=== PATIENT | female | born 1945 | race Caucasian/White ===

== ENCOUNTER 2016-11-16 08:00 | Outpatient (CLI) | payer MEDICARE ==
--- NOTE | 2016-11-16 17:46 | XRAY Report ---
CERVICAL SPINE: 11/16/2016 HISTORY: Neck pain. FINDINGS: There is visualization of C1 through the intervertebral disk space of C7-T1. Degenerative disk and facet changes are noted. This is maximal between C5-6 and C6-7 (left greater t buckley right) with apparent neural foraminal compromise. There is no acute fracture or focus of destruction. The prevertebral soft tissues are within normal limits. The visualized lung apices are clear. The C1-2 relationship is preserved. IMPRESSION: DEGENERATIVE DISK AND FACET DISEASE. CONSIDER MRI IF THERE ARE PROGRESSIVE RADICULAR SY MPTOMS. JOB #: [id number] EXT JOB #:[id number]
== END 2016-11-16 23:59 | disposition home or self-care (01) ==
LOC: DI.S 08:00
PROVIDERS: ATTEND Nurse Practitioner Family
DX: M50.30 Other cervical disc degeneration, unspecified cervical region (principal); M47.892 Other spondylosis, cervical region
CPT/HCPCS: 72050

== ENCOUNTER 2016-11-23 08:47 | Outpatient (CLI) | payer MEDICARE ==
[2016-11-23 17:45] LABS: BASOPHILS % (AUTO) 0.5 %; EOSINOPHILS # (AUTO) 0.1 10^3/uL (0.0-0.7); EOSINOPHILS % (AUTO) 1.7 %; HCT - HEMATOCRIT 42.9 % (37.0-47.0); HGB - HEMOGLOBIN 14.2 g/dL (12.0-16.0); LYMPHOCYTES # (AUTO) 1.6 10^3/uL (1.5-3.5); LYMPHOCYTES % (AUTO) 33.4 %; MEAN CORPUSCULAR HEMOGLOBIN 29.2 pg (27.0-31.0); MEAN CORPUSCULAR HGB CONC 33.1 g/dL (32.0-36.0); MEAN CORPUSCULAR VOLUME 88.2 fL (81.0-99.0); MEAN PLATELET VOLUME 9.8 fL (7.9-10.8); MONOCYTES # (AUTO) 0.3 10^3/uL (0.0-1.0); MONOCYTES % (AUTO) 5.9 %; NEUTROPHILS # (AUTO) 2.8 10^3/uL (1.5-6.6); NEUTROPHILS % (AUTO) 58.5 %; RED BLOOD COUNT 4.86 10^6/uL (4.20-5.40); RED CELL DISTRIBUTION WIDTH 13.4 % (12.0-15.0); UNCORRECTED WHITE BLOOD COUNT 4.8 x10^3/uL; WHITE BLOOD COUNT 4.8 x10^3/uL (4.8-10.8)
[2016-11-23 18:14] LABS: ALBUMIN/GLOBULIN RATIO 1.7 (1.0-2.2); BILIRUBIN,TOTAL 1.8 mg/dL (0.2-1.0); BUN - BLOOD UREA NITROGEN 11 mg/dL (6-20); CALCIUM 9.8 mg/dL (8.5-10.3); CARBON DIOXIDE - CO2 28 mmol/L (21-32); CHLORIDE 108 mmol/L (101-111); CHOL/HDL RATIO 3.4 (<4.4); CHOLESTEROL 198 mg/dL; CREATININE 0.6 mg/dL (0.4-1.0); GFR - MDRD 99 (>89); GLUCOSE 95 mg/dL (70-100); HDL CHOLESTEROL 58 mg/dL; LDL/HDL RATIO 2.2 (<4.4); POTASSIUM 3.8 mmol/L (3.5-5.0); SODIUM 141 mmol/L (135-145); TOTAL PROTEIN 6.8 g/dL (6.7-8.2); TRIGLYCERIDES 63 mg/dL; VLDL CHOLESTEROL 13 mg/dL
== END 2016-11-23 08:48 | disposition home or self-care (01) ==
LOC: LAB.F 08:47
PROVIDERS: ATTEND Nurse Practitioner Family
DX: I10 Essential (primary) hypertension (principal)
CPT/HCPCS: 36415; 80053; 80061; 84443; 85025

== ENCOUNTER 2016-12-13 12:40 | Outpatient (CLI) | payer MEDICARE ==
--- NOTE | 2016-12-13 15:09 | MRI Report ---
EXAM: MRI CERVICAL SPINE WITHOUT CONTRAST EXAM DATE: 12/13/2016 01:16 PM. CLINICAL HISTORY: Lifting injury 1990. Left upper limb numbness in the hands and fingers. Right later al wrist pain. COMPARISONS: None. TECHNIQUE: Multiplanar, multisequence T1-weighted and fluid-sensitive sequences of the cervical spine without contrast. Other: None. FINDINGS: Neurologic Structures: The visualized posterior fossa structures are unremarkable. No signal abnormal ity in the visualized spinal cord. Alignment: There is a 7 degree levoscoliosis centered on C4. There is a 2 mm retrolisthesis at C6-C7. There is a slight flexion deformity at C5-C6. Bone Marrow: No gross fractures or bone lesions. No marrow edema. Interspace Levels/Facets: C1-C2: Unremarkable. C2-C3: There is mild left facet joint osteoarthritis. There is minimal foraminal narrowing. C3-C4: Moderate bilateral facet joint osteoarthritis. Moderate left and minimal right foraminal narro wing. Uncovertebral osteophytes contact the left C4 nerve root. C4-C5: There is disk desiccation and loss of disk height. There is mild bilateral facet joint osteoar thritis causing mild foraminal narrowing. There is minimal effacement of the cord. There is moderate left and mild right foraminal narrowing. An uncovertebral osteophyte contacts the left C5 nerve root. C5-C6: There is disk desiccation and loss of disk height. There is a broad-based posterior disk osteo phyte complex and mild bilateral facet joint osteoarthritis. There is moderate right and mild left fo raminal narrowing. C6-C7: There is disk desiccation and loss of disk height. There is a broad-based posterior disk osteo phyte complex causing moderate effacement of the ventral surface of the sac and cord. There is modera te left and mild right foraminal narrowing. An uncovertebral osteophyte contacts the left C7 nerve ro ot. C7-T1: Moderate left and mild right facet joint osteoarthritis. The canal and foramina are patent. Musculature: Normal. No edema or fatty atrophy. Other: The paravertebral and prevertebral soft tissues are normal. IMPRESSION: 1. 7 degree levoscoliosis centered on C4. 2 mm retrolisthesis at C6-C7. 2. Moderate degenerative change with multilevel foraminal narrowing particularly at C5-C6 and C6-C7 c ausing mild cord effacement without cord edema. 3. Multilevel foraminal narrowing particularly at the left C4-C5 and C6-C7 levels. [facility] Referring Provider Line: [phone] SITE ID: [id number]
== END 2016-12-13 12:41 | disposition home or self-care (01) ==
LOC: DI 12:40
PROVIDERS: ATTEND Nurse Practitioner Family
DX: M41.9 Scoliosis, unspecified (principal); M43.12 Spondylolisthesis, cervical region; M47.9 Spondylosis, unspecified; M50.321 Other cervical disc degeneration at C4-C5 level
CPT/HCPCS: 72141

== ENCOUNTER 2016-12-22 13:09 | Outpatient (CLI) | payer MEDICARE ==
--- NOTE | 2016-12-23 11:25 | Mammography Report ---
DIGITAL SCREENING MAMMOGRAPHY: 12/22/2016 COMPARISON: 10/03/2015, 07/24/2013, 09/26/2012, 09/22/2012, and 09/21/2011. TECHNIQUE: Bilateral digital CC and MLO projections. FINDINGS: There are scattered fibroglandular densities. An area of asymmetric increased density in the upper outer left breast is similar to preceding studies. Scattered benign-appearing calcificatio ns are noted. There is no suspicious dominant mass, architectural distortion, new microcalcifications, skin thicken ing, or significant interval change. IMPRESSION: NEGATIVE. BIRADS CATEGORY 1. SUGGEST RETURN TO ROUTINE SCREENING IN 12 MONTHS. STANDARD QUALIFYING STATEMENTS 1. This examination was reviewed with the aid of Computer-Aided Detection (CAD). 2. A negative or benign imaging report should not delay biopsy if clinically suspicious findings are present. Consider surgical consultation if warranted. More than 5% of cancers are not identified by i maging. 3. Dense breasts may obscure an underlying neoplasm. JOB #: [id number] EXT JOB #:[id number]
== END 2016-12-22 13:10 | disposition home or self-care (01) ==
LOC: DI 13:09
PROVIDERS: ATTEND Nurse Practitioner Family
DX: Z12.31 Encounter for screening mammogram for malignant neoplasm of breast (principal)
CPT/HCPCS: 77067

== ENCOUNTER 2017-01-11 09:46 | Day surgery (SDC) | payer MEDICARE ==
[2017-01-11] MEDS ORDERED: LACTATED RINGERS 1,000 ML IV ONE (10:15)
[2017-01-11] MEDS ORDERED: fentaNYL 100 MCG/2 ML VIAL IVP ONE (11:21)
[2017-01-11] MEDS ORDERED: MIDAZOLAM 2 MG/2 ML VIAL IVP ONE (11:21)
[2017-01-11 12:33] VITALS: BP 126/64
== END 2017-01-11 09:47 | disposition home or self-care (01) ==
LOC: SDS 09:46
PROVIDERS: ATTEND Surgery
PROC: 0DBL8ZX Excision of Transverse Colon, Via Natural or Artificial Opening Endoscopic, Diagnostic (ICD-10-PCS; principal; 2017-01-11 11:00)
DX: Z12.11 Encounter for screening for malignant neoplasm of colon (principal); D12.3 Benign neoplasm of transverse colon; I10 Essential (primary) hypertension; G25.81 Restless legs syndrome; F32.9 Major depressive disorder, single episode, unspecified; Z87.891 Personal history of nicotine dependence
CPT/HCPCS: 45380; 88305; J7120

== ENCOUNTER 2017-08-01 14:10 | Outpatient (CLI) | payer MEDICARE ==
--- NOTE | 2017-08-01 16:12 | XRAY Report ---
LEFT HIP AND PELVIS: 08/01/2017 CLINICAL INDICATION: Pain. FINDINGS: Frontal view of the hips and pelvis and frogleg lateral view of the left hip demonstrate mild left hip osteoarthritis, with chondrocalcinosis. Right hip replacement is noted. There is no evidence of fracture or dislocation. IMPRESSION: MILD LEFT HIP OSTEOARTHRITIS. TD: 08/01/2017 16:11
== END 2017-08-01 14:11 | disposition home or self-care (01) ==
LOC: DI.S 14:10
PROVIDERS: ATTEND Nurse Practitioner Family
DX: M25.552 Pain in left hip (principal); M16.12 Unilateral primary osteoarthritis, left hip

== ENCOUNTER 2017-11-03 10:39 | Outpatient (CLI) | payer MEDICARE ==
[2017-11-03 17:26] LABS: BASOPHILS # (AUTO) 0.1 10^3/uL (0.0-0.1); BASOPHILS % (AUTO) 1.2 %; EOSINOPHILS # (AUTO) 0.1 10^3/uL (0.0-0.7); EOSINOPHILS % (AUTO) 1.4 %; HGB - HEMOGLOBIN 14.5 g/dL (12.0-16.0); LYMPHOCYTES # (AUTO) 1.9 10^3/uL (1.5-3.5); LYMPHOCYTES % (AUTO) 31.8 %; MEAN CORPUSCULAR HEMOGLOBIN 29.7 pg (27.0-31.0); MEAN CORPUSCULAR HGB CONC 33.8 g/dL (32.0-36.0); MEAN CORPUSCULAR VOLUME 88.1 fL (81.0-99.0); MEAN PLATELET VOLUME 9.2 fL (7.9-10.8); MONOCYTES # (AUTO) 0.4 10^3/uL (0.0-1.0); MONOCYTES % (AUTO) 7.2 %; NEUTROPHILS # (AUTO) 3.5 10^3/uL (1.5-6.6); NEUTROPHILS % (AUTO) 58.4 %; PLT - PLATELET COUNT 256 10^3/uL (130-450); RED BLOOD COUNT 4.88 10^6/uL (4.20-5.40); RED CELL DISTRIBUTION WIDTH 13.4 % (12.0-15.0)
[2017-11-03 18:09] LABS: ALBUMIN 4.2 g/dL (3.2-5.5); ALBUMIN/GLOBULIN RATIO 1.4 (1.0-2.2); ALKALINE PHOSPHATASE 89 IU/L (42-121); ALT ALANINE AMINOTRANSFERASE 17 IU/L (10-60); AST ASPARTATE AMINOTRANSFERASE 22 IU/L (10-42); BILIRUBIN,TOTAL 2.2 mg/dL (0.2-1.0); BUN - BLOOD UREA NITROGEN 11 mg/dL (6-20); CALCIUM 10.1 mg/dL (8.5-10.3); CARBON DIOXIDE - CO2 29 mmol/L (21-32); CHLORIDE 101 mmol/L (101-111); CHOL/HDL RATIO 3.2 (<4.4); CHOLESTEROL 221 mg/dL; CREATININE 0.5 mg/dL (0.4-1.0); GFR - MDRD 122 (>89); GLUCOSE 97 mg/dL (70-100); HDL CHOLESTEROL 69 mg/dL; LDL CHOLESTEROL,CALCULATED 137 mg/dL; SODIUM 138 mmol/L (135-145); TOTAL PROTEIN 7.2 g/dL (6.7-8.2); VLDL CHOLESTEROL 15 mg/dL
== END 2017-11-03 10:40 | disposition home or self-care (01) ==
LOC: LAB.F 10:39
PROVIDERS: ATTEND Nurse Practitioner Family
DX: I10 Essential (primary) hypertension (principal); Z13.220 Encounter for screening for lipoid disorders
CPT/HCPCS: 36415; 80053; 80061; 83721; 84443; 85025

== ENCOUNTER 2018-05-23 14:03 | Outpatient (CLI) | payer MEDICARE ==
--- NOTE | 2018-05-24 09:24 | XRAY Report ---
Reason: PAIN IN LEFT HAND Procedure Date: 05/23/2018 Accession Number: [id number] / [id number] Procedure: XR - Hand 3 View LT CPT Code: FULL RESULT: EXAM: LEFT HAND RADIOGRAPHY EXAM DATE: 05/23/2018 02:52 PM. CLINICAL HISTORY: Pain in left hand. Ground level fall 1 day ago. COMPARISON: None. TECHNIQUE: 3 views. FINDINGS: Bones: Comminuted fracture of the fourth metacarpal diaphysis with approximately 1 mm volar translation of the distal fragment, otherwise relatively preserved alignment. Joints: Normal. No subluxations. Soft Tissues: Normal. No soft tissue swelling. IMPRESSION: Comminuted fracture of the fourth metacarpal. [facility] The call report notification system was initiated by Dr. Alli Watson at 09:15 AM on 05/24/2018. ADDENDUM: 05/24/18 14:25 The above call report findings were discussed with SRAVANI Kenney by Dr. Alli Watson at 02:25 PM on 05/24/2018.
== END 2018-05-23 14:04 | disposition home or self-care (01) ==
LOC: DI 14:03
PROVIDERS: ATTEND Nurse Practitioner Family
DX: S62.305A Unspecified fracture of fourth metacarpal bone, left hand, initial encounter for closed fracture (principal)

== ENCOUNTER 2018-08-11 16:30 | Outpatient (CLI) | payer MEDICARE ==
--- NOTE | 2018-08-15 14:28 | DEXA Report ---
Reason: OSTEOPOROSIS SCREENING Procedure Date: 08/11/2018 Accession Number: [id number] / [id number] Procedure: DEX - Dexa Spine and/or Hip CPT Code: FULL RESULT: EXAM: Dexa Spine and/or Hip DATE: 08/11/2018 4:20 PM CLINICAL HISTORY: OSTEOPOROSIS SCREENING TECHNIQUE: Dual energy x-ray absorptiometry (DXA) was performed on a [employer] System. Regions measured are the AP Spine, femoral neck, and if needed forearm. COMPARISON: None. In accordance with the International Society for Clinical Densitometry (ISCD) guidelines, data from previous exams may be reanalyzed using current recommendations and techniques. This is done to allow a more accurate basis for comparison with the current study. FINDINGS: The data for the lumbar spine is as follows: BMD (g/cm/cm) T-SCORE Z-SCORE REGION L1 1.034 -0.8 0.7 L2 1.058 -1.2 0.3 L3 1.308 0.9 2.4 L4 1.268 0.6 2.1 TOTAL 1.182 0.0 1.5 NOTE: All evaluable vertebrae are used for classification The data for the hip is as follows: BMD (g/cm/cm) T-SCORE Z-SCORE REGION Neck 0.913 -0.9 0.8 TOTAL 0.901 -0.8 0.6 NOTE: The femoral neck or total proximal femur, whichever is lowest, is used for classification. IMPRESSION: THE WHO CLASSIFICATION BASED ON THE INTERNATIONAL REFERENCE STANDARD IS NORMAL. THE FRACTURE RISK IS NOT INCREASED. RECOMMENDATION: Patients with diagnosis of osteoporosis or osteopenia should have regular bone mineral density assessment. For those eligible for Medicare, routine testing is allowed once every 2 years. Testing frequency can be increased for patients who have rapidly progressing disease or for those who are receiving medical therapy to restore bone mass. COMMENT: World Health Organization (WHO) definitions for osteoporosis and osteopenia: NORMAL BMD: T-score at -1.0 or higher, fracture risk is low OSTEOPENIA BMD: T-score between -1.0 and -2.5, fracture risk is increased. OSTEOPOROSIS BMD: T-score at -2.5 or lower, fracture risk is high. National Osteoporosis Foundation recommends: 1. Obtain adequate dietary calcium (at least 1200 mg per day) and vitamin D (400-800 international units per day). 2. Participate, as appropriate, in regular weightbearing and muscle-strengthening exercise. 3. Avoid tobacco use and reduce alcohol and caffeine intake. 4. For more detailed information see the website at www.NOF.org.
== END 2018-08-11 23:59 | disposition home or self-care (01) ==
LOC: DI 16:30
PROVIDERS: ATTEND Nurse Practitioner Family
DX: Z13.820 Encounter for screening for osteoporosis (principal); Z78.9 Other specified health status
CPT/HCPCS: 77080

== ENCOUNTER 2018-10-19 09:23 | Outpatient (CLI) | payer MEDICARE ==
[2018-10-19 18:05] LABS: ALBUMIN 4.2 g/dL (3.2-5.5); ALBUMIN/GLOBULIN RATIO 1.4 (1.0-2.2); BILIRUBIN,TOTAL 1.7 mg/dL (0.2-1.0); CALCIUM 9.9 mg/dL (8.5-10.3); CREATININE 0.6 mg/dL (0.4-1.0); TOTAL PROTEIN 7.1 g/dL (6.7-8.2)
== END 2018-10-19 09:24 | disposition home or self-care (01) ==
LOC: LAB.S 09:23
PROVIDERS: ATTEND Physician Assistant Medical
DX: I10 Essential (primary) hypertension (principal)
CPT/HCPCS: 36415; 80053

== ENCOUNTER 2018-11-17 21:30 | Emergency (ER) | payer MEDICARE ==
--- NOTE | 2018-11-17 22:05 | ED Physician Documentation ---
History of Present Illness - Stated complaint Stated Complaint: RT ANKLE SWELL/PX - Chief complaint Chief Complaint: Wound - Additonal information Additional information: This is a 73-year-old female with a history of hypertension and her right hip replacement, who presents with right heel pain and redness. Patient states that she had some swelling in her leg several weeks ago which she attributed to changing medications to amlodipine, this resolved but then beginning 2 to 3 days ago she began having some pain redness and warmth of her heel on the right side. She saw her primary care provider who prescribed her amoxicillin for an a pparent cellulitis. However she has been taking this medication without improvement. Her area of redness is now increasing, and she has pain with palpation of the Achilles tendon region. She denies any trauma to the area. She denies redness or swelling elsewhere. She did not note any wounds to the heel previously. She states there might of been a bug bite above the region prior to the start of this redness. No fever, chills. She has been able to walk on it. Review of Systems Constitutional: denies: Fever Skin: reports: Other (+ for erythema around achilles) Musculoskeletal: reports: Extremity pain Immunocompromised: denies: Immunocompromised PD PAST MEDICAL HISTORY - Past Medical History Past Medical History: Yes Cardiovascular: Hypertension Respiratory: None Endocrine/Autoimmune: None : Frequency HEENT: Other Derm: Rosacea - Past Surgical History Past Surgical History: Yes Ortho: Hip replacement, Other - Present Medications Home Medications: Ambulatory Orders Medication Instructions Recorded Confirmed RX: Lisinopril [Prinivil] 20 mg ORAL DAILY 01/11/17 11/17/18 Clindamycin HCl [Clindamycin 150MG 450 mg PO TID #90 capsule 11/17/18 CAP] RX: Amoxicillin 1 tab PO BID 11/17/18 11/17/18 - Allergies Allergies/Adverse Reactions: Allergies Allergy/AdvReac Type Severity Reaction Status Date / Time erythromycin base Allergy Hives Verified 11/17/18 21:52 rofecoxib [From Vioxx] Allergy Unknown Verified 11/17/18 21:52 codeine AdvReac Nausea Verified 11/17/18 21:52 morphine AdvReac Nausea Verified 11/17/18 21:52 - Social History Does the pt smoke?: No Smoking Status: Never smoker Does the pt drink ETOH?: Yes Does the pt have substance abuse?: No - Immunizations Immunizations are current?: Yes - POLST Patient has POLST: No PD ED PE NORMAL - Vitals Vital signs reviewed: Yes - General General: Alert and oriented X 3, No acute distress - HEENT HEENT: PERRL - Neck Neck: Supple, no meningeal sign - Cardiac Cardiac: Strong equal pulses - Abdomen Abdomen: Non distended - Extremities Extremities: Other (Over the right Achilles tendon there is erythema which extends 6 cm superiorly from the insertion site of the Achilles tendon. It is also 5 cm wide. There is tenderness of the entire region including the Achilles tendon. Patient is able to dorsiflex and plantarflex her ankle with mild discomfort. There is no bony tenderness of the ankle. 2+ DP pulse, brisk capi llary refill, sensation light touch intact) - Neuro Neuro: Alert and oriented X 3 - Psych Psych: Normal mood, Normal affect Results - Vitals Vitals: Vital Signs - 24 hr 11/17/18 23:50 Temperature 36.2 C L Heart Rate 72 Respiratory 16 Rate Blood Pressure 168/89 H O2 Saturation 98 Oxygen O2 Source Room air - Labs Labs: Laboratory Tests 11/17/18 11/17/18 22:23 22:23 WBC 9.8 RBC 4.65 Hgb 13.5 Hct 40.7 MCV 87.5 MCH 29.0 MCHC 33.2 RDW 12.9 Plt Count 268 MPV 10.1 Neut # (Auto) 6.1 Lymph # (Auto) 2.6 [place] # (Auto) 0.9 Eos # (Auto) 0.2 Baso # (Auto) 0.1 Absolute Nucleated RBC 0.00 Nucleated RBC % 0.0 Sodium 136 Potassium 3.8 Chloride 97 L Carbon Dioxide 23 Anion Gap 16.0 H BUN 9 Creatinine 0.5 Estimated GFR (MDRD) 121 Glucose 119 H Calcium 10.1 Total Bilirubin 0.9 AST 16 ALT 12 Alkaline Phosphatase 117 C-Reactive Protein 3.4 H Total Protein 7.4 Albumin 4.3 Globulin 3.1 Albumin/Globulin Ratio 1.4 Lipase 26 - Rads (name of study) XR Radiology: Final report received (XR right ankle shows no acute osseous abnormality, no soft tissue gas) PD MEDICAL DECISION MAKING - ED course Complexity details: considered differential (Cellulitis, tendonitis, tenosynovitis, inflammatory arthritis, contact dermatitis) ED course: On exam patient is well appearing with unremarkable vital signs. She has a focal area of redness and tenderness on her heel, is neurologically intact. Labs show no leukocytosis, CMP unremarkable, CRP is slightly elevated at 3.4. XR unremarkable. I do think this is likely a cellulitis, bedside US does not reveal any abscess. No signs of septic joint, she can range the ankle very well. Given that she is very well appearing, we will broaden her abx to clindamycin. I marked out the area of erythema and instructed her to return if is progresses more than 1.5cm from the edge. I reviewed return precautions and recommended a recheck in 24-48 hours, sooner with any worsening. She agrees and was discharged home. Departure - Departure Disposition: 01 Home, Self Care Clinical Impression: Cellulitis Condition: Good Instructions: Cellulitis Dc Follow-Up: Renée Alfaro PA-C [Primary Care Provider] - Within 3 Days (For recheck of redness/cellulitis) Prescriptions: Clindamycin HCl [Clindamycin 150MG CAP] 450 mg PO TID #90 capsule Comments: You were seen today for redness and pain in your right ankle. I do think this is a cellulitis, it may not treated enough with the amoxillin. Please take the new antibiotic clindamycin as prescribed. If the redness progresses past the area we have marked out on your leg, if you develop any fever, significant increasing pain, or signs of worsening infection, return to the emergency department immediately. Please also Follow-up with your primary care provider within 2 to 3 days Discharge Date/Time: 11/17/18 23:51
[2018-11-17 22:30] LABS: BASOPHILS # (AUTO) 0.1 10^3/uL (0.0-0.1); BASOPHILS % (AUTO) 0.6 %; EOSINOPHILS # (AUTO) 0.2 10^3/uL (0.0-0.7); EOSINOPHILS % (AUTO) 2.2 %; HGB - HEMOGLOBIN 13.5 g/dL (12.0-16.0); LYMPHOCYTES # (AUTO) 2.6 10^3/uL (1.5-3.5); LYMPHOCYTES % (AUTO) 26.2 %; MEAN CORPUSCULAR HGB CONC 33.2 g/dL (32.0-36.0); MEAN CORPUSCULAR VOLUME 87.5 fL (81.0-99.0); MEAN PLATELET VOLUME 10.1 fL (7.9-10.8); MONOCYTES # (AUTO) 0.9 10^3/uL (0.0-1.0); MONOCYTES % (AUTO) 8.8 %; NEUTROPHILS # (AUTO) 6.1 10^3/uL (1.5-6.6); NEUTROPHILS % (AUTO) 61.8 %; PLT - PLATELET COUNT 268 10^3/uL (130-450); RED BLOOD COUNT 4.65 10^6/uL (4.20-5.40); RED CELL DISTRIBUTION WIDTH 12.9 % (12.0-15.0); WHITE BLOOD COUNT 9.8 x10^3/uL (4.8-10.8)
[2018-11-17 22:48] LABS: ALBUMIN 4.3 g/dL (3.2-5.5); ALBUMIN/GLOBULIN RATIO 1.4 (1.0-2.2); BILIRUBIN,TOTAL 0.9 mg/dL (0.2-1.0); CALCIUM 10.1 mg/dL (8.5-10.3); CREATININE 0.5 mg/dL (0.4-1.0); CRP - C-REACTIVE PROTEIN 3.4 mg/dL (0-1.0); TOTAL PROTEIN 7.4 g/dL (6.7-8.2)
--- NOTE | 2018-11-17 23:09 | XRAY Report ---
Reason: Pain, swelling, redness over achilles, no trauma Procedure Date: 11/17/2018 Accession Number: [id number] / [id number] Procedure: XR - Ankle 2 View RT CPT Code: FULL RESULT: EXAM: RIGHT ANKLE RADIOGRAPHY EXAM DATE: 11/17/2018 10:39 PM. CLINICAL HISTORY: Pain, swelling, redness over achilles, no trauma. COMPARISON: None. TECHNIQUE: 2 views. FINDINGS: Bones: No acute fractures or suspicious bone lesions. Joints: No subluxations. Soft Tissues: Calcifications of the plantar fascia are present. No radiopaque foreign bodies. IMPRESSION: No acute radiographic abnormalities. [facility]
[2018-11-17] MEDS ORDERED: cephALEXin 250 MG CAPSULE PO STA (23:35)
[2018-11-17] MEDS ORDERED: CLINDAMYCIN 150 MG CAPSULE PO STA (23:37)
[2018-11-17 23:51] VITALS: BP 168/89
== END 2018-11-17 23:51 | disposition home or self-care (01) ==
LOC: ED 21:30
DX: L03.115 Cellulitis of right lower limb (principal); I10 Essential (primary) hypertension; Z96.641 Presence of right artificial hip joint
CPT/HCPCS: 36415; 73600; 80053; 83690; 85025; 86140; 99283; 99284; A9270

== ENCOUNTER 2019-01-10 12:05 | Outpatient (CLI) | payer MEDICARE ==
[2019-01-10 18:29] LABS: RHEUMATOID FACTOR NEGATIVE (Negative)
[2019-01-10 18:31] LABS: CRP - C-REACTIVE PROTEIN 4.8 mg/dL (0-1.0); URIC ACID 2.1 mg/dL (2.6-7.2)
[2019-01-12 19:57] LABS: 18 KD (IGG) BAND NON-REACTIVE; 23 KD (IGG) BAND NON-REACTIVE; 23 KD (IGM) BLOT NON-REACTIVE; 28 KD (IGG) BAND NON-REACTIVE; 30 KD (IGG) BAND NON-REACTIVE; 39 KD (IGG) BAND REACTIVE; 39 KD (IGM) BLOT NON-REACTIVE; 41 KD (IGG) BAND REACTIVE; 41 KD (IGM) BLOT NON-REACTIVE; 45 KD (IGG) BAND NON-REACTIVE; 58 KD (IGG) BAND NON-REACTIVE; 66 KD (IGG) BAND NON-REACTIVE; 93 KD (IGG) BAND NON-REACTIVE
[2019-01-16 09:26] LABS: ANA SCREEN NEGATIVE (NEGATIVE)
[2019-01-16 18:26] LABS: CYCLIC CITRULL PEPTIDE CCP IGG <16 UNITS
== END 2019-01-10 12:06 | disposition home or self-care (01) ==
LOC: LAB.S 12:05
PROVIDERS: ATTEND Physician Assistant Medical
DX: M25.50 Pain in unspecified joint (principal)
CPT/HCPCS: 36415; 84550; 85651; 86038; 86140; 86200; 86430; 86617

== ENCOUNTER 2020-04-23 10:50 | Outpatient (CLI) | payer BC ==
[2020-04-23 16:07] LABS: BASOPHILS % (AUTO) 0.7 %; EOSINOPHILS % (AUTO) 0.7 %; HGB - HEMOGLOBIN 13.9 g/dL (12.0-16.0); LYMPHOCYTES # (AUTO) 1.7 10^3/uL (1.5-3.5); LYMPHOCYTES % (AUTO) 27.9 %; MEAN CORPUSCULAR HEMOGLOBIN 27.5 pg (27.0-31.0); MEAN CORPUSCULAR HGB CONC 30.8 g/dL (32.0-36.0); MEAN CORPUSCULAR VOLUME 89.3 fL (81.0-99.0); MONOCYTES # (AUTO) 0.4 10^3/uL (0.0-1.0); MONOCYTES % (AUTO) 5.8 %; NEUTROPHILS # (AUTO) 3.9 10^3/uL (1.5-6.6); NEUTROPHILS % (AUTO) 64.6 %; PLT - PLATELET COUNT 237 10^3/uL (130-450); RED BLOOD COUNT 5.05 10^6/uL (4.20-5.40); RED CELL DISTRIBUTION WIDTH 13.3 % (12.0-15.0)
[2020-04-23 16:52] LABS: ALBUMIN 4.5 g/dL (3.2-5.5); ALBUMIN/GLOBULIN RATIO 1.6 (1.0-2.2); ALKALINE PHOSPHATASE 109 IU/L (42-121); ALT ALANINE AMINOTRANSFERASE 14 IU/L (10-60); AST ASPARTATE AMINOTRANSFERASE 19 IU/L (10-42); BILIRUBIN,TOTAL 1.8 mg/dL (0.2-1.0); CALCIUM 10.2 mg/dL (8.5-10.3); CARBON DIOXIDE - CO2 27 mmol/L (21-32); CHLORIDE 102 mmol/L (101-111); CHOL/HDL RATIO 3.1 (<4.4); CHOLESTEROL 219 mg/dL; GLUCOSE 98 mg/dL (70-100); HDL CHOLESTEROL 70 mg/dL; LDL CHOLESTEROL,CALCULATED 136 mg/dL; LDL/HDL RATIO 1.9 (<4.4); SODIUM 139 mmol/L (135-145); TOTAL PROTEIN 7.3 g/dL (6.7-8.2); VLDL CHOLESTEROL 13 mg/dL
[2020-04-23 18:03] LABS: BUN - BLOOD UREA NITROGEN 9 mg/dL (6-20); CREATININE 0.5 mg/dL (0.4-1.0)
== END 2020-04-23 10:51 | disposition home or self-care (01) ==
LOC: LAB.S 10:50
PROVIDERS: ATTEND Physician Assistant
DX: G47.00 Insomnia, unspecified (principal); R27.9 Unspecified lack of coordination; R53.83 Other fatigue; Z13.1 Encounter for screening for diabetes mellitus; Z13.220 Encounter for screening for lipoid disorders; I10 Essential (primary) hypertension
CPT/HCPCS: 36415; 80053; 80061; 82306; 83721; 85025

== ENCOUNTER 2022-02-03 10:11 | Outpatient (CLI) | payer MEDICARE ==
--- NOTE | 2022-02-04 10:28 | Mammography Report ---
BILATERAL DIGITAL SCREENING MAMMOGRAM 3D/2D: 02/03/2022 CLINICAL: Routine screening. Comparison is made to exams dated: 12/22/2016 mammogram, 10/03/2015 mammogram, 07/24/2013 mammogram, and 09/26/2012 mammogram - [facility]. Both breasts are heterogeneously dense, which may obscure small masses (category c / 51-75% glandular tissue). There is a vascular calcification in both breasts. There is a focal asymmetry with grouped calcifications in the left breast at 11 o'clock posterior dep th. No other significant masses, calcifications, or other findings are seen in either breast. IMPRESSION: INCOMPLETE: NEEDS ADDITIONAL IMAGING EVALUATION The focal asymmetry in the left breast is indeterminate. Spot magnification views as well as additio nal views with possible ultrasound are recommended. Based on the Tyrer Cuzick model (a risk assessment model) the patients lifetime risk is 5.1% and her 10 year risk is 0.0%. According to the ACR, ACS, and NCCN guidelines, an annual breast MRI exam navi g with mammogram is recommended if the patients lifetime risk is 20% or greater. This exam was interpreted at Station ID: [id number]. NOTE: For mammograms, a report in lay terms will be sent to the patient. Approximately 15% of breast malignancies will not be visualized mammographically. In the management of a palpable breast mass, a negative mammogram must not discourage biopsy of a clinically suspicious lesion. Electronically Signed By: Renee espinosa/earlene:02/03/2022 17:25:26 ACR BI-RADS Category 0: Incomplete 3340F PARENCHYMAL PATTERN: (D) - The breast(s) demonstrate(s) heterogeneously dense fibroglandular helio samaniego. BI-RADS CATEGORY: (0) - 0 Mammo and [place] [id number] Immediate follow-up LATERALITY: (B)
== END 2022-02-03 10:12 | disposition home or self-care (01) ==
LOC: DI 10:11
PROVIDERS: ATTEND Nurse Practitioner Family
DX: Z12.31 Encounter for screening mammogram for malignant neoplasm of breast (principal); R92.8 Other abnormal and inconclusive findings on diagnostic imaging of breast

== ENCOUNTER 2022-02-03 10:14 | Outpatient (CLI) | payer MEDICARE ==
--- NOTE | 2022-02-03 13:28 | DEXA Report ---
PROCEDURE: Dexa Spine and forearm INDICATIONS: POSTMENOPAUSAL TECHNIQUE: Dual energy x-ray absorptiometry (DXA) was performed on a [employer] System. Regions measur ed are the AP Spine, femoral neck, and if needed forearm. COMPARISON: 08/11/2018 FINDINGS: Lumbar Spine: Bone Mineral Density 1.14 g/cm/cm,T score -0.3, previously 0 Left forearm: Bone Mineral Density 0.51 g/cm/cm, T score -2.7, (T score greater or equal to -1.0: NORMAL) (T score from -1.1 to -2.4: OSTEOPENIA) (T score less than or equal to -2.5 to: OSTEOPOROSIS) Impression: Osteoporosis noted in the forearm. Normal, stable bone mineral density in the lumbar spine. Patients with diagnosis of osteoporosis or osteopenia should have regular bone mineral density assess ment. For those eligible for Medicare, routine testing is allowed once every 2 years. Testing frequ ency can be increased for patients who have rapidly progressing disease or for those who are receivin g medical therapy to restore bone mass. Reviewed by: Davis Baird MD on 02/03/2022 1:27 PM PDT Approved by: Davis Baird MD on 02/03/2022 1:27 PM PDT Station ID: [id number]
== END 2022-02-03 10:15 | disposition home or self-care (01) ==
LOC: DI 10:14
PROVIDERS: ATTEND Nurse Practitioner Family
DX: M81.0 Age-related osteoporosis without current pathological fracture (principal)

== ENCOUNTER 2022-03-15 10:14 | Outpatient (CLI) | payer MEDICARE ==
--- NOTE | 2022-03-16 15:24 | Mammography Report ---
UNILATERAL LEFT DIGITAL DIAGNOSTIC MAMMOGRAM 3D/2D WITH MAGNIFICATION: 03/15/2022 CLINICAL: Patient returns for magnification views of microcalcifications in the left breast. Comparison is made to exams dated: 02/03/2022 mammogram, 12/22/2016 mammogram, 10/03/2015 mammogram, and 07/24/2013 mammogram - [facility]. The left breast is heterogeneously dense, which may obscure small masses (category c / 51-75% glandul ar tissue). There are new 1.1 cm grouped coarse heterogeneous calcifications in the left breast at 11 o'clock pos terior depth. There are benign vascular calcifications in the left breast. No other significant masses or calcific ations are seen in the breast. IMPRESSION: SUSPICIOUS OF MALIGNANCY The new 1.1 cm grouped coarse heterogeneous calcifications in the left breast are at a low suspicion for malignancy. A stereotactic biopsy is recommended. Based on the Tyrer Cuzick model (a risk assessment model) the patients lifetime risk is 5.1% and her 10 year risk is 0.0%. According to the ACR, ACS, and NCCN guidelines, an annual breast MRI exam navi g with mammogram is recommended if the patients lifetime risk is 20% or greater. This exam was interpreted at Station ID: [id number]. NOTE: For mammograms, a report in lay terms will be sent to the patient. Approximately 15% of breast malignancies will not be visualized mammographically. In the management of a palpable breast mass, a negative mammogram must not discourage biopsy of a clinically suspicious lesion. Electronically Signed By: Eliel Bell M.D. slc/:03/15/2022 10:58:04 ACR BI-RADS Category 4a: Suspicious abnormality - low suspicion for malignancy 3344F PARENCHYMAL PATTERN: (D) - The breast(s) demonstrate(s) heterogeneously dense fibroglandular parenchy ma. BI-RADS CATEGORY: (4a) - Low Susp Biopsy [id number] Immediate follow-up LATERALITY: (L)
== END 2022-03-15 10:15 | disposition home or self-care (01) ==
LOC: DI 10:14
PROVIDERS: ATTEND Nurse Practitioner Family
DX: R92.0 Mammographic microcalcification found on diagnostic imaging of breast (principal)

== ENCOUNTER 2022-04-06 08:12 | Outpatient (CLI) | payer MEDICARE ==
[2022-04-06] MEDS ORDERED: LIDOCAINE 1%-EPI 1:100000 20 ML MDV ONE (08:29)
[2022-04-06] MEDS ORDERED: LIDOCAINE-MPF 1% 5 ML VIAL ONE ×2 (08:29→08:51)
[2022-04-06] MEDS ORDERED: LIDOCAINE 1%-EPI 1:100000 20 ML MDV SUBQ ONE (16:04)
[2022-04-06] MEDS: LIDOCAINE-MPF 1% 5 ML VIAL TD ONE ×2 (16:09→16:10)
--- NOTE | 2022-04-12 12:05 | Mammography Report ---
STEREOTACTIC GUIDED BIOPSY LEFT BREAST USING VACUUM DEVICE WITH MARKING DEVICE INSERTED AND POST MAMM OGRAPHIC IMAGING AND RADIOGRAPHIC SPECIMEN IMAGING- POST-PROCEDURE IMAGING FOR MARKER PLACEMENT: 2022 CLINICAL: Stereotactic biopsy of left breast calcifications. Post procedure clip placement. Correlation is made to exams dated: 03/15/2022 mammogram, 02/03/2022 mammogram, and 12/22/2016 mammogr am - [facility]. A stereotactic guided biopsy was performed for the 1.1 cm calcification located in the left breast at 11 o'clock posterior depth. This was described on the previous mammography report. The skin was pr epped in the usual manner. Local anesthetic was administered to the access site. A skin nedra was ma de in the breast. The abnormality was approached from the caudocranial aspect. A 9 gauge biopsy nee dle was placed adjacent to the abnormality under computer guidance and confirmatory stereotactic mamm ography images were obtained to document needle placement. Once the needle was documented to be in t he correct location, a specimen was obtained using a vacuum assisted device. A clip was inserted int o the biopsy cavity. Post procedure mammographic imaging demonstrates the location device at the tar geted area. The specimen was sent to the laboratory for pathological analysis. IMPRESSION: STEREOTACTIC GUIDED BIOPSY BENIGN Stereotactic guided biopsy of the 1.1 cm calcification in the left breast at 11 o'clock posterior dep th was successful. The imaged specimen includes the calcification. Pathology indicates benign invol uting fibroadenoma. Concordant. Return to screen. This exam was interpreted at Station ID: [id number]. Davis Baird M.D. lc/:04/12/2022 10:19:59 BI-RADS CATEGORY: () - Unspecified - other recall n/a LATERALITY: (B)
== END 2022-04-06 08:13 | disposition home or self-care (01) ==
LOC: DI 08:12
PROVIDERS: ATTEND Nurse Practitioner Family
DX: D24.2 Benign neoplasm of left breast (principal)
CPT/HCPCS: 19081

== ENCOUNTER 2023-09-22 14:14 | Outpatient (CLI) | payer MEDICARE ==
--- NOTE | 2023-09-23 09:37 | DEXA Report ---
PROCEDURE: Dexa Spine and/or Hip INDICATIONS: OSTEOPOROSIS TECHNIQUE: Dual energy x-ray absorptiometry (DXA) was performed on a [employer] System. Regions measur ed are the AP Spine, femoral neck, and if needed forearm. COMPARISON: DEXA, 02/03/2022. FINDINGS: Lumbar Spine: Bone Mineral Density: 1.260 g/cm/cm,T score: 0.7. Normal. Left Forearm: Bone Mineral Density: 0.678 g/cm/cm, T score: -2.3. Osteopenia. (T score greater or equal to -1.0: NORMAL) (T score from -1.1 to -2.4: OSTEOPENIA) (T score less than or equal to -2.5 to: OSTEOPOROSIS) Impression: 1. By WHO criteria, this patient has osteopenia. 2. Compared to the prior examination dated 02/03/2022, the patient's bone mineral density in lumbar sp ine has increased by 10.3%. The patient's bone mineral density in left forearm is not significantly c hanged by statistical analysis. Patients with diagnosis of osteoporosis or osteopenia should have regular bone mineral density assess ment. For those eligible for Medicare, routine testing is allowed once every 2 years. Testing frequ ency can be increased for patients who have rapidly progressing disease or for those who are receivin g medical therapy to restore bone mass. Reviewed by: Natalie Potter MD on 09/23/2023 9:36 AM PDT Approved by: Natalie Potter MD on 09/23/2023 9:36 AM PDT Station ID: [id number]
== END 2023-09-22 14:15 | disposition home or self-care (01) ==
LOC: DI 14:14
PROVIDERS: ATTEND Nurse Practitioner Family
DX: M85.832 Other specified disorders of bone density and structure, left forearm (principal)